=== PATIENT | female | born 1950 | race Caucasian/White ===

== ENCOUNTER 2018-09-11 21:09 | Inpatient (IN) ==
[2018-09-11] MEDS ORDERED: Naloxone 0.4 MG/ML INJ IVP PRN (23:39)
[2018-09-11] MEDS ORDERED: *HR* HYDROcodone/Acet 5/325 mg TABLET PO PRN (23:39)
[2018-09-11] MEDS ORDERED: Ibuprofen 400 MG TABLET PO PRN (23:39)
[2018-09-11] MEDS ORDERED: *HR* LORazepam 2 MG/ML VIAL IVP ONE (23:44)
[2018-09-11] MEDS ORDERED: 0.9 % Sodium Chloride 1,000 ML IVC SCH (23:45)
[2018-09-11] MEDS ORDERED: Aspirin 325 MG TABLET PO ONE (23:59)
[2018-09-12 01:00] LABS: Prothrombin Time 11.1 Seconds (9.4-12.1)
[2018-09-12 01:03] LABS: Activated Partial Thrombo Time 33.3 Seconds (26.0-36.0)
[2018-09-12 01:09] LABS: BUN/Creatinine Ratio 15 (6-26); Blood Urea Nitrogen 10 mg/dL (8-23); Calcium 9.7 mg/dL (8.6-10.3); Carbon Dioxide 22 mEq/L (23-29); Chloride 101 mEq/L (98-107); Glucose 99 mg/dL (70-105); Osmolality,Calculated 271 (280-300); Potassium 3.9 mEq/L (3.5-5.1); Sodium 131 mEq/L (136-145); eGFR For Non-African Americans > 60 (> 60)
[2018-09-12 01:54] LABS: Basophils # 0.1 K/mcL (0.0-0.2); Basophils % 1.4 %; Eosinophils # 0.1 K/mcL (0.0-0.6); Eosinophils % 1.7 %; Hemoglobin 15.2 g/dL (11.5-15.4); Immature Granulocytes % 0.2 % (0-4); Lymphocytes # 2.1 K/mcL (0.6-4.6); Lymphocytes % 32.5 %; Mean Corpuscular HGB Conc 36.2 g/dL (31.6-35.5); Mean Corpuscular Hemoglobin 34.4 pg (28.0-33.3); Mean Platelet Volume 10.3 fL (9.4-12.4); Monocytes # 0.7 K/mcL (0.0-1.3); Monocytes % 11.5 %; Neutrophils # 3.4 K/mcL (1.6-8.9); Platelet Count 281 K/mcL (140-400); Red Blood Count 4.42 M/mcL (3.82-4.97); Red Cell Distribution Width 11.9 % (11.5-14.5); Segmented Neutrophils % 52.7 %
[2018-09-12 02:16] LABS: Troponin I < 0.03 ng/mL (< 0.04)
[2018-09-12 02:17] LABS: Alanine Aminotransferase 9 Units/L (7-52); Albumin 4.3 g/dL (3.5-5.7); Albumin/Globulin Ratio 1.6 (1.1-2.2); Alkaline Phosphatase 83 Units/L (34-104); Aspartate Amino Transferase 15 Units/L (13-39); BUN/Creatinine Ratio 15 (6-26); Bilirubin,Total 0.7 mg/dL (0.3-1.0); Blood Urea Nitrogen 10 mg/dL (8-23); Calcium 9.9 mg/dL (8.6-10.3); Carbon Dioxide 22 mEq/L (23-29); Chloride 101 mEq/L (98-107); Cholesterol 217 mg/dL (< 200); Globulin 2.7 g/dL (2.4-3.5); Glucose 99 mg/dL (70-105); HDL Cholesterol 54 mg/dL (40-59); LDL Cholesterol,Calculated 141 mg/dL (0-99); Osmolality,Calculated 271 (280-300); Potassium 3.8 mEq/L (3.5-5.1); Sodium 131 mEq/L (136-145); Triglycerides 109 mg/dL (< 150); eGFR For Non-African Americans > 60 (> 60)
--- NOTE | 2018-09-12 02:39 | Internal Med History&Physical ---
<Sanjuana Altamirano - Last Filed: 09/12/18 02:42> Date of Encounter: 09/12/18 Time of Encounter: 02:37 Internal Medicine - H&P: HPI Chief complaint: Stroke like symptoms History of present illness: Ms. AGUDELO is a 68 year old female with significant past medical history of hypercholesterolemia not currently on any medications presenting to hospital from an outside emergency department for strokelike symptoms. According to the patient 2 days ago she started having sensation abnormalities in the left upper and left lower extremity. She also had minimal weakness. This spontaneously resolved. Then yesterday she woke up from sleep and had severe weakness of the left upper and lower extremity that did not resolve. She went to an outside emergency department for further evaluation. The outside emergency department CT of the head was within normal limits. Patient declined aspirin at that time. Patient states she does have some residual sensation abnormalities and weakness in the left upper and lower extremity but no other concerns or complaints. Patient denies any dizziness, headache, chest pain or shortness of breath. Patient denies any anticoagulation use. Past Med Surg Social Fam HX - Past Medical History Attestation: Yes The following information was validated with the patient. - Social History Smoking Status: Current every day smoker Packs per day: 0.5-1 ppd Smokeless Tobacco Status: No Alcohol use: occasionally Drug use: marijuana - Family History Mother Living Status: Age at : 80 Cause of : CA Hx Family Cardiac Disorders: Yes Hx Family Cancer: Yes (CERVICAL) Hx Family Endocrine Disorder: Yes (DM) Hx Family Neurologic Disorders: Yes (CVA) Father Living Status: Age at : 85 Cause of : CARDIAC RELATED Hx Family Neurologic Disorders: Yes (CVA) Brother Living Status: Age at : 70 Cause of : LUNG CANCER Sister Living Status: Age at : 70 Cause of : LUNG CANCER Internal Medicine - H&P: Meds Allergy/AdvReac Type Severity Reaction Status Date / Time No Known Allergies Allergy Verified 09/12/18 01:09 All Systems PM: A 10-system review of systems was performed and is negative for pertinent find ings except as documented above in the HPI. - Constitutional Constitutional: weakness, no fever(s) - EENT Eyes: no blurry vision, no change in vision Ears: as per HPI Nose, mouth and throat: as per HPI - Breasts Breasts: as per HPI - Cardiovascular Cardiovascular ROS IM: no chest pain, no dyspnea, no dyspnea on exertion - Respiratory Respiratory: no cough, no dyspnea - Gastrointestinal Gastrointestinal: no abdominal pain, no nausea, no vomiting - Genitourinary Genitourinary: as per HPI Menstruation: as per HPI - Musculoskeletal Musculoskeletal ROS IM: as per HPI - Integumentary Integumentary IM: as per HPI - Neurological Neurological ROS: focal weakness, paresthesias, weakness, no abnormal speech, no confusion, no headache(s), no loss of vision - Psychiatric Psychiatric: as per HPI - Endocrine Endocrine IM: as per HPI - Hematologic/Lymphatic Hematologic/Lymphatic: as per HPI - Allergic/Immunologic Allergic/Immunologic: as per HPI - Constitutional Vitals: Temp Pulse Resp BP Pulse Ox 98.2 F 66 18 180/100 96 09/11/18 22:55 09/11/18 22:55 09/11/18 22:55 09/11/18 22:55 09/11/18 23:15 General appearance: Present: A&O X 3, pleasant, no acute distress Exam: 68-year-old female alert and oriented 3, nontoxic appearing - Head Head exam: Present: atraumatic, normal inspection, normocephalic - Eye Eye exam: Present: EOMI, PERRL. Absent: scleral icterus - ENT ENT exam: Present: mucous membranes moist - Neck Neck exam general surgery: Present: full ROM. Absent: tenderness - Respiratory Respiratory exam: Present: CTAB - Cardiovascular Cardiovascular exam: Present: RRR. Absent: bradycardia, irregular rhythm, ta chycardia - GI/Abdominal GI/Abdominal exam: Present: soft. Absent: rebound, rigid, tenderness - Extremities Exam Additional comments: All 4 extremity distal pulses 2+. Left upper extremity with sensation abnormalities in muscle strength 4 out of 5 compared to right upper extremity 5 out of 5. Left lower extremity sensation abnormalities. Muscle strength 3 out of 5 compared to right lower extremity 5 out of 5. - Neurological Exam Neurological exam: Present: alert, motor sensory deficit, oriented X3. Absent: facial droop, speech deficit - Psychiatric Psychiatric exam: Present: normal affect, normal mood Internal Med - H&P Results - Labs CBC & Chem 7: 09/12/18 01:30 09/12/18 01:30 Labs: Short CBC 09/12/18 Range/Units 01:30 WBC 6.5 (4.3-11.1) K/mcL Hgb 15.2 (11.5-15.4) g/dL Hct 42.0 (35.3-44.9) % Plt Count 281 (140-400) K/mcL Neutrophils # 3.4 (1.6-8.9) K/mcL BMP 09/12/18 09/12/18 00:38 01:30 Sodium 131 L 131 L Potassium 3.9 3.8 Chloride 101 101 Carbon Dioxide 22 L 22 L BUN 10 10 Creatinine 0.66 0.65 Glucose 99 99 Calcium 9.7 9.9 Cardiac Enzymes 09/12/18 Range/Units 01:30 Troponin I < 0.03 (< 0.04) ng/mL Liver Function 09/12/18 Range/Units 01:30 Total Bilirubin 0.7 (0.3-1.0) mg/dL AST 15 (13-39) Units/L ALT 9 (7-52) Units/L Alkaline Phosphatase 83 (34-104) Units/L Albumin 4.3 (3.5-5.7) g/dL - Assessment and plan (1) Stroke Current Visit: Yes Status: Acute Assessment and plan: Patient with residual left upper and lower extremity weakness and sensation abnormalities. Otherwise neurological exam within normal limits. Patient has had symptoms for greater than 24 hours and therefore is not a candidate for any intervention at this time. We will perform an MRI along with MRA head and neck. We will consult neurology. We will provide the patient with a full dose aspirin at this time. Echo, carotid and basic laboratory analysis within lipids will be completed. Occupational and physical therapy consulted Qualifiers: CVA mechanism: unspecified Qualified Code(s): I63.9 - Cerebral infarction, unspecified (2) DVT prophylaxis Current Visit: Yes Status: Acute Assessment and plan: Subcutaneous heparin - Time Spent With Patient Total time spent is greater than 50% in coordination of care (as documented) at patient's floor/unit and/or counseling patient: <Holli Ha - Last Filed: 09/12/18 07:36> Date of Encounter: 09/12/18 Internal Medicine - H&P: HPI History of present illness: Ms. AGUDELO is a 68 year old female All Systems PM: A 10-system review of systems was performed and is negative for pertinent findings except as documented above in the HPI. - Constitutional Vitals: Temp Pulse Resp BP Pulse Ox 97.7 F 61 14 170/92 95 09/12/18 04:04 09/12/18 04:04 09/12/18 04:04 09/12/18 04:04 09/12/18 04:04 Internal Med - H&P Results - Labs CBC & Chem 7: 09/12/18 01:30 09/12/18 01:30 Labs: Short CBC 09/12/18 Range/Units 01:30 WBC 6.5 (4.3-11.1) K/mcL Hgb 15.2 (11.5-15.4) g/dL Hct 42.0 (35.3-44.9) % Plt Count 281 (140-400) K/mcL Neutrophils # 3.4 (1.6-8.9) K/mcL BMP 09/12/18 09/12/18 00:38 01:30 Sodium 131 L 131 L Potassium 3.9 3.8 Chloride 101 101 Carbon Dioxide 22 L 22 L BUN 10 10 Creatinine 0.66 0.65 Glucose 99 99 Calcium 9.7 9.9 Cardiac Enzymes 09/12/18 Range/Units 01:30 Troponin I < 0.03 (< 0.04) ng/mL Liver Function 09/12/18 Range/Units 01:30 Total Bilirubin 0.7 (0.3-1.0) mg/dL AST 15 (13-39) Units/L ALT 9 (7-52) Units/L Alkaline Phosphatase 83 (34-104) Units/L Albumin 4.3 (3.5-5.7) g/dL - Impressions ITS Impressions Head MRA 09/11/18 23:59 IMPRESSION: Unremarkable MRA of the brain. D/ / 09/12/2018 07:31:17 Gary Bailey MD / [facility] Interpreting Provider: Gary Bailey MD Neck MRA 09/11/18 23:59 IMPRESSION: 1. There is a 60% stenosis in the proximal right subclavian artery. 2. There is a 25% stenosis at the innominate artery origin. 3. There is minimal luminal irregularity in the proximal internal carotid arteries with estimated 10% stenoses. 4. The vertebral arteries are patent bilaterally. D/ / 09/12/2018 07:24:18 Gary Bailey MD / [facility] Interpreting Provider: Gary Bailey MD - Time Spent With Patient Total time spent is greater than 50% in coordination of care (as documented) at patient's floor/unit and/or counseling patient: - Attending Attestation I performed a history and physical ex, review labs and imaging and discus her management with the resident. I reviewed the resident's note and agree with t he plan of care. Patient is a 68-year-old femalewith a past medical history of hyperlipidemia and significant smoking history not currently on any medication or followed by a PCPwho presents with left upper and left lower extremity weakness which began 2 days ago. concern for stroke now outside the w for TPA. We will obtain MRI in the morning with the aid of sedation due to patient reported claustrophobia.
[2018-09-12] MEDS: *HR* Heparin 5,000 UNIT/ML VIAL SQ SCH ×2 (05:43→20:02)
[2018-09-12] MEDS ORDERED: Aspirin Enteric Coated 81 MG Tablet PO SCH (09:00)
--- NOTE | 2018-09-12 09:15 | Neurology - Consult Note ---
Addendum entered and electronically signed by Amparo Moore MD 09/12/18 15:14: Patient seen and examined in the presence of Dr.Fabian Newman. Case discussed and imaging studies reviewed together. I agree with his history taking, physical examination, assessment and plan outlined below. In summary, this is a 68-year-old woman with past medical history significant for hyperlipidemia, smoking who developed acute onset of left-sided weakness, caused by small lacunar infarct involving the right external basal ganglia area. This is likely a small vessel lacunar infarct. Patient stroke workup is completed including echocardiogram showing left ventricular ejection fraction 50-55%, no significant regional wall motion abnormality, no PFO and other valvular dysfunction. CT and REM of the neck showed no significant ICA stenosis. Patient still has rather significant left-sided paresis and she may benefit from inpatient PT. Agree with antiplatelet therapy in the form of Plavix 75 mg daily and continue statin therapy. Patient is ready to be status discharged from neurology perspective. Smoking cessation is advised Original Note: <Trent Feldman - Last Filed: 09/12/18 14:43> Date of Encounter: 09/12/18 Time of Encounter: 09:14 Assessment and Plan (1) CVA (cerebral vascular accident) Current Visit: Yes Status: Acute Patient presented with weakness and sensation abnormalities in the LUE and LLE Brain MRI: - Acute/early subacute infarct involving the posterior right corpus stratum - Cerebral and cerebellar parenchymal volume loss with mild chronic microvascular white matter ischemic disease - Chronic infarcts in the right cerebellar hemisphere and left corpus striatum Head MRA was unremarkable Neck MRA demonstrated - 60% stenosis in the proximal right subclavian artery - 25% stenosis at the innominate artery origin - Minimal luminal irregularity in the proximal internal carotid arteries with estimated 10% stenosis - Patent vertebral arteries bilaterally Plan: - Patient was started on aspirin and a statin - ECHO ordered, lipid panel pending - Continue with physical therapy - Will switch patient's aspirin to plavix, as patient reports a previous adverse reaction to aspirin Qualifiers: Qualified Code(s): I63.9 - Cerebral infarction, unspecified History of Present Illness HPI: Neyda Rosales is a 68-year-old female with a PMH of HLD who presented to [facility] as a transfer from an outside emergency department for weakness and sensation abnormalities in the LUE and LLE. Patient reported that these symptoms began approximately 2 days ago. They had spontaneously resolved, but she woke up from sleep and had severe weakness in the LUE and LLE that did not resolve. Presents outside emergency department, which perform CT scan of her head. This showed no acute abnormalities. Patient declined aspirin at that time. Patient was transferred here for further evaluation. Brain MRI and MRA were ordered. Brain MRI demonstrated acute/early subacute infarct involving the posterior right corpus stratum, likely contributing to patients left neurologic symptoms. Cerebral and cerebellar parenchymal volume loss with mild chronic microvascular white matter ischemic disease; Chronic infarcts in the right cerebellar hemisphere and left corpus striatum. Head MRA was unremarkable. Neck MRA demonstrated: 60% stenosis in the proximal right subclavian artery, 25% stenosis at the innominate artery origin, minimal luminal irregularity in the proximal internal carotid arteries with estimated 10% stenosis, patent vertebral arteries bilaterally. Patient was started on aspirin and a statin. Patient seen and examined at bedside; she reports that she still has weakness on her left side, primarily in the LUE. Her LLE weakness has improved. She was seen by physical therapy earlier in the day, who recommended that she sit in the chair at bedside. She denies headache, confusion, weakness, numbness, tingling, paresthesias, vertigo, or visual disturbances. She has no further complaints at this time. Past Med Surg Social Fam HX - Social History Smoking Status: Current every day smoker Packs per day: 0.5-1 ppd Smokeless Tobacco Status: No Alcohol use: occasionally Drug use: marijuana - Family History Mother Living Status: Age at : 80 Cause of : MA Hx Family Cardiac Disorders: Yes Hx Family Cancer: Yes (CERVICAL) Hx Family Endocrine Disorder: Yes (DM) Hx Family Neurologic Disorders: Yes (CVA) Father Living Status: Age at : 85 Cause of : CARDIAC RELATED Hx Family Neurologic Disorders: Yes (CVA) Brother Living Status: Age at : 70 Cause of : LUNG CANCER Sister Living Status: Age at : 70 Cause of : LUNG CANCER Medications and Allergies Allergy/AdvReac Type Severity Reaction Status Date / Time No Known Allergies Allergy Verified 09/12/18 01:09 All Systems: The remainder of the systems were reviewed and are negative - Constitutional Constitutional ROS IM: as per HPI, weakness, no lethargy, no malaise - Musculoskeletal Musculoskeletal ROS IM: as per HPI, limited range of motion (Secondary to weakness, primarily in the LUE), muscle weakness, no myalgias, no numbness, no stiffness - Neurological Neurological ROS: as per HPI, focal weakness, weakness, no dizziness, no headache(s), no loss of vision, no numbness, no syncope, no tingling, no tremor(s), no other visual disturbances Physical Examination - Vital Signs Vital Signs: Initial Vital Signs Temp Pulse Resp BP Pulse Ox 98.2 F 66 18 180/100 95 09/11/18 22:55 09/11/18 22:55 09/11/18 22:55 09/11/18 22:55 09/11/18 22:55 - Constitutional General appearance: comfortable - Neurologic Sensorimotor examination: intact Motor examination - right side: 3/5: deltoids, biceps, triceps, wrist flexion, wrist extension, 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, 4/5: toe extension (EHL), plantarflexion Motor examination - left side: 4/5: deltoids, biceps, triceps, wrist flexion, wrist extension, hip flexors, 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, toe extension (EHL), plantarflexion Detailed sensory examination: intact Reflexes: Triceps: 1+, Patella: 1+ Mental Status Examination: awake, alert, oriented to person, oriented to place, oriented to time, follows commands appropriately, answers questions appropriately, makes eye contact Cranial nerve examination: PERRL, EOMI, visual sharpe intact, sensory to face intact, no facial asymmetry is present, no dysarthria, tongue protrudes midline Results - Laboratory Findings CBC and BMP: 09/12/18 01:30 09/12/18 01:30 Abnormal lab findings: Abnormal lab results MCH 34.4 pg (28.0-33.3) H 09/12/18 01:30 MCHC 36.2 g/dL (31.6-35.5) H 09/12/18 01:30 Sodium 131 mEq/L (136-145) L 09/12/18 01:30 Carbon Dioxide 22 mEq/L (23-29) L 09/12/18 01:30 Calculated Osmolality 271 (280-300) L 09/12/18 01:30 Cholesterol 217 mg/dL (< 200) H 09/12/18 01:30 LDL Cholesterol, Calc 141 mg/dL (0-99) H 09/12/18 01:30 Consult Discharge Plan - Plan Referrals: NONE,PCP [Primary Care Provider] - <TeresaColtdrew - Last Filed: 09/12/18 15:08> Date of Encounter: 09/12/18 History of Present Illness HPI: Ms. Rosales is a 68 year old female All Systems: The remainder of the systems were reviewed and are negative Physical Examination - Vital Signs Vital Signs: Initial Vital Signs Temp Pulse Resp BP Pulse Ox 98.2 F 66 18 180/100 95 09/11/18 22:55 09/11/18 22:55 09/11/18 22:55 09/11/18 22:55 09/11/18 22:55 Results - Laboratory Findings CBC and BMP: 09/12/18 01:30 09/12/18 01:30 Abnormal lab findings: Abnormal lab results MCH 34.4 pg (28.0-33.3) H 09/12/18 01:30 MCHC 36.2 g/dL (31.6-35.5) H 09/12/18 01:30 Sodium 131 mEq/L (136-145) L 09/12/18 01:30 Carbon Dioxide 22 mEq/L (23-29) L 09/12/18 01:30 Calculated Osmolality 271 (280-300) L 09/12/18 01:30 Cholesterol 217 mg/dL (< 200) H 09/12/18 01:30 LDL Cholesterol, Calc 141 mg/dL (0-99) H 09/12/18 01:30
[2018-09-12 09:45] LABS: Estimated Average Glucose 103 mg/dl; Hemoglobin A1C 5.2 %
--- NOTE | 2018-09-12 12:45 | Event Note ---
Date of Encounter: 09/12/18 Time of Encounter: 10:30 68-year-old female with history of hyperlipidemia, tobacco abuse was admitted for L sided paresthesia/weakness and was found to have acute infarct in R posterior corpus striatum. ASA, statin started. Echo no PFO, neck imagings did not show significant stenosis. PT eval pending but OT's input is that of swing bed for rehab. Will speak to SW during round later today to plan for disposition. Appreciate neurology input.
[2018-09-12] MEDS ORDERED: 0.9 % Sodium Chloride 1,000 ML ONE (13:13)
[2018-09-13 03:58] LABS: Hematocrit 39.3 % (35.3-44.9); Hemoglobin 14.2 g/dL (11.5-15.4); Mean Corpuscular HGB Conc 36.1 g/dL (31.6-35.5); Mean Corpuscular Hemoglobin 34.6 pg (28.0-33.3); Mean Corpuscular Volume 95.9 fL (83.0-100.0); Mean Platelet Volume 11.1 fL (9.4-12.4); Platelet Count 253 K/mcL (140-400); Red Cell Distribution Width 11.7 % (11.5-14.5)
[2018-09-13 04:08] LABS: BUN/Creatinine Ratio 18 (6-26); Blood Urea Nitrogen 11 mg/dL (8-23); Calcium 9.3 mg/dL (8.6-10.3); Carbon Dioxide 23 mEq/L (23-29); Chloride 105 mEq/L (98-107); Glucose 111 mg/dL (70-105); Osmolality,Calculated 270 (280-300); Potassium 3.8 mEq/L (3.5-5.1); Sodium 130 mEq/L (136-145); eGFR For Non-African Americans > 60 (> 60)
[2018-09-13] MEDS: *HR* Heparin 5,000 UNIT/ML VIAL SQ SCH (05:42)
--- NOTE | 2018-09-13 09:15 | Neurology Progress Note ---
Date of Encounter: 09/13/18 Time of Encounter: 09:13 Assessment and Plan (1) CVA (cerebral vascular accident) Current Visit: Yes Status: Acute Patient with lacunar infarct involving the right posterior right corpus striatum. Stroke work up completed and showed no other causes. Continue Plavix 75mg daily and statin therapy. Smoking cessation. Risk factor modification advised. Prognosis of such stroke discussed with the patient. May benefit from PT. Likely will have permanent residual weakness to left arm. Will sign off at this time. Please call if any questions. Qualifiers: CVA mechanism: unspecified Qualified Code(s): I63.9 - Cerebral infarction, unspecified (2) Stroke Status: Acute Qualifiers: CVA mechanism: unspecified Qualified Code(s): I63.9 - Cerebral infarction, unspecified Subjective Principal diagnosis: CVA Interval history: Patient seen and examined. She is feeling better today, Strength in her left leg is improved. She is able to life her left leg off the bed easily and flex and extend it. Left arm weakness is still prominent. No speech difficulty. No mental status changes. 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, hip flexors, tibialis Anterior, quadriceps, toe extension (EHL), plantarflexion Motor examination - left side: 4/5: deltoids, biceps, triceps, wrist flexion, wrist extension, hip flexors, roller coaster engineer, toe extension (EHL), plantarflexion Sensation intact: Present: intact Posture: Present: other (None) Reflex and gait examination: other (Gait not assessed) Reflexes: Biceps: 2+ (left < right), Triceps: 2+, Brachioradialis: 2+, Patella: 2+, Achilles: 2+ Mental Status Examination: Present: awake, alert, oriented to person, oriented to place, oriented to time, follows commands appropriately, answers questions appropriately, no agnosia, no aphasia, no aproxia Cranial nerve examination: Present: PERRL, EOMI, visual sharpe intact, corneal reflexes brisk symmetrically, sensory to face intact, mastication intact, no facial asymmetry is present, no dysarthria, hearing is intact symmetrically, soft palate elevates bilaterally upon phonation, gag reflex intact, flexes SCM and trapezius muscles symmetrically with full power, tongue protrudes midline Results - Laboratory Findings CBC and BMP: 09/13/18 03:08 09/13/18 03:08 Abnormal lab findings: Abnormal lab results MCH 34.6 pg (28.0-33.3) H 09/13/18 03:08 MCHC 36.1 g/dL (31.6-35.5) H 09/13/18 03:08 Sodium 130 mEq/L (136-145) L 09/13/18 03:08 Glucose 111 mg/dL (70-105) H 09/13/18 03:08 Calculated Osmolality 270 (280-300) L 09/13/18 03:08 Cholesterol 217 mg/dL (< 200) H 09/12/18 01:30 LDL Cholesterol, Calc 141 mg/dL (0-99) H 09/12/18 01:30 - Diagnostic Findings Additional findings: EV/EV echocardiogram Impressions: LVEF 50-55%. Mild concentric left ventricular hypertrophy. Moderate left ventricular diastolic dysfunction. Normal right ventricular structure and function. No evidence of PFO with agitated saline contrast. No evidence of pulmonary hypertension. Trace pulmonic regurgitation. Consult Discharge Plan - Plan Referrals: NONE,PCP [Primary Care Provider] -
--- NOTE | 2018-09-13 10:11 | Discharge Summary ---
- NOTES TO OUTPATIENT PROVIDER Notes to Outpatient Provider: Patient was admitted for lacunar infarct in right posterior corpus striatum. Stroke workup did not reveal any other causes. Will be discharged on plavix and statin (due to aspirin intolerance). Risk factor modifications emphasized to the patient. Date of Encounter: 09/13/18 Time of Encounter: 07:30 - Discharge Diagnosis (1) CVA (cerebral vascular accident) Priority: Primary Status: Acute Qualifiers: CVA mechanism: unspecified Qualified Code(s): I63.9 - Cerebral infarction, unspecified (2) Hypertension Priority: Secondary Status: Acute Qualifiers: Hypertension type: essential hypertension Qualified Code(s): I10 - Essential (primary) hypertension (3) HLD (hyperlipidemia) Priority: Secondary Status: Acute Qualifiers: Hyperlipidemia type: mixed hyperlipidemia Qualified Code(s): E78.2 - Mixed hyperlipidemia (4) Tobacco abuse Priority: Secondary Status: Acute Hospital course: Ms. Rosales is a 68 year old female was admitted for lacunar infarct in right posterior corpus striatum. Stroke workup did not reveal any other causes. Will be discharged on plavix and statin (due to aspirin intolerance). Risk factor modifications emphasized to the patient. Discharge discussed with: patient, nurse, social work - Time Spent with Patient Total time spent providing and/or coordinating discharge services: 35 mins - Discharge Medications Prescriptions: amLODIPine [Norvasc] 5 mg PO DAILY #30 tablet Atorvastatin [Lipitor] 40 mg PO HS #30 tablet Clopidogrel [Plavix] 75 mg PO DAILY #30 tablet Home Medications: Atorvastatin [Lipitor] 40 mg PO HS #30 tablet 09/13/18 [Rx] Clopidogrel [Plavix] 75 mg PO DAILY #30 tablet 09/13/18 [Rx] amLODIPine [Norvasc] 5 mg PO DAILY #30 tablet 09/13/18 [Rx] Allergies/Adverse Reactions: Allergy/AdvReac Type Severity Reaction Status Date / Time No Known Allergies Allergy Verified 09/12/18 01:09 Date of admission: 09/12/18 07:25 Primary care physician: PCP NONE Consults: 09/11/18 23:41 Consult to Neurology [CONS] Routine Consulting Provider: Neurology [facility] Reason for Consult: Stroke Call Completed: No Consult to Occupational Therapy [CONS] Routine Comment: Evaluate, develop and implement POC Reason for Consult: Stroke Does patient have active BEDREST order?: No Is patient medically & hemodynamically stable?: Yes Consult to Physical Therapy [CONS] Routine Comment: Evaluate, develop and implement POC Reason for Consult: Stroke Does patient have active BEDREST order?: No Is patient medically & hemodynamically stable?: Yes Consult to [employer] [CONS] Routine Reason for SW Consult: Stroke - Constitutional Vitals: Temp Pulse Resp BP Pulse Ox 99.0 F 87 12 165/111 96 09/13/18 08:10 09/13/18 08:10 09/13/18 08:10 09/13/18 08:10 09/13/18 08:10 General appearance: Present: A&O X 3, pleasant, no acute distress Exam: General: Alert and oriented, not in acute distress. Cardiovascular:Normal S1 & S2, No JVD. Pulse regular. Lungs: clear to auscultation, no wheezes/rales Abdomen:Soft, non-tender, no rigidity. Extremities:No deformity or swelling Neurological: CN II-XII intact, power 4+/5 on L LE and UE. No cerebellar signs, pronator drift -ve - Patient Status Disposition: Transfer SNF Condition: Fair - Discharge Instructions Instructions: Chronic Hypertension (DC) Follow Up With: NONE,PCP [Primary Care Provider] - - Diet and Activity Activity: as per physical therapy Diet: low salt diet
--- NOTE | 2018-09-13 10:18 | Physician Discharge Referral ---
ExtendedCare Referral Info Institutional Level of Care: Skilled - Diagnosis (1) CVA (cerebral vascular accident) Priority: Primary Status: Acute (2) Hypertension Priority: Secondary Status: Acute (3) HLD (hyperlipidemia) Priority: Secondary Status: Acute (4) Tobacco abuse Priority: Secondary Status: Acute Prognosis: Fair - Transfer Medications Prescriptions: amLODIPine [Norvasc] 5 mg PO DAILY #30 tablet Atorvastatin [Lipitor] 40 mg PO HS #30 tablet Clopidogrel [Plavix] 75 mg PO DAILY #30 tablet Home Medications: Atorvastatin [Lipitor] 40 mg PO HS #30 tablet 09/13/18 [Rx] Clopidogrel [Plavix] 75 mg PO DAILY #30 tablet 09/13/18 [Rx] amLODIPine [Norvasc] 5 mg PO DAILY #30 tablet 09/13/18 [Rx] Allergies/Adverse Reactions: Allergy/AdvReac Type Severity Reaction Status Date / Time No Known Allergies Allergy Verified 09/12/18 01:09 - Respiratory Orders Smoking Cessation: Smoking cessation has been advised. For more information, call the [place] Tobacco Quit Line at 6-476-RWAF-NOW. - Rehabiliation Orders Rehab Orders: Evaluation for Physical Therapy, Evaluation for Occupational Therapy - Diet Orders Cardiac CERTIFICATION: I certify that the transfer of the above named patient to an Extended Care Facility is necessary for the continuing treatment of the diagnosis listed. The above information is true and accurate reflection of patient's current condition. Confidential - Redisclosure prohibited without a patient's written consent.
[2018-09-13 12:51] VITALS: BP 174/97
== END 2018-09-13 14:02 | DRG 65 ==
LOC: 2NENU → SUATTDRO 22:25 → 2NENU 09-12 16:24
PROVIDERS: ADMIT Internal Medicine; ATTEND Internal Medicine